=== PATIENT | female | born 1980 | race Caucasian/White ===

== ENCOUNTER 2017-08-29 07:49 | Outpatient (CLI) | payer OTHER | END 2017-08-29 07:50 | disposition home or self-care (01) | LOC: BICMAMMO 07:49 | PROVIDERS: ATTEND Family Medicine | DX: N63.10 Unspecified lump in the right breast, unspecified quadrant (principal) | CPT/HCPCS: 77066; G0279 ==

== ENCOUNTER 2022-12-11 15:34 | Emergency (ER) | payer OTHER, SELFPAY ==
[2022-12-11] MEDS ORDERED: Ketorolac Tromethamine 30 MG/ML VIAL ONE ×2 (16:01→16:03)
[2022-12-11 16:52] LABS: Bacteria/HPF None Seen HPF (None Seen); Bilirubin Negative (Negative); Blood, Urine 1+ (Negative); CAUTI Indications for Culture Pelvic or flank pain; Clarity Clear (Clear); Glucose, Urine (Dipstick) Normal (Negative); Ketone, Urine Negative (Negative); Leukocyte Negative Leu/uL (Negative); Nitrite Negative (Negative); Protein, Urine (Dipstick) 10 mg/dL (Neg-Trace); Specific Gravity, Urine 1.029 (1.002-1.036); Squamous Epithelial 0-3 HPF (0-3); Urobilinogen Normal mg/dL (Less than 2); WBC/HPF 0-3 HPF (0-3)
[2022-12-11 16:55] LABS: Urine Culture Reflex No No
== END 2022-12-11 17:24 | disposition home or self-care (01) ==
LOC: ERS 15:34
DX: M54.50 Low back pain, unspecified (principal); F17.210 Nicotine dependence, cigarettes, uncomplicated
CPT/HCPCS: 81001; 96372; 99283; J1885

== ENCOUNTER 2023-07-22 10:26 | Inpatient (IN) | payer OTHER, SELFPAY ==
[2023-07-22] MEDS ORDERED: ISOVUE-370 76% MDV (1 ML CHARGE) ONE (11:01)
[2023-07-22 12:12] LABS: #Eosinphils 0.2 thou/uL (0.0-0.7); #Monocytes 0.5 thou/uL (0.11-0.59); #Neutrophils 5.7 thou/uL (1.40-6.50); %Basophils 0.4 % (0.0-1.0); %Eosinophils 1.8 % (0.0-10.0); %Lymphocytes 22.5 % (21.0-51.0); %Monocytes 6.2 % (0.0-10.0); %Neutrophils 68.7 % (42.0-75.0); Hematocrit 37.9 % (36.0-47.0); Hemoglobin 12.6 g/dL (12.0-16.0); Mean Corpuscular HGB CONC 33.2 g/dL (32.0-36.0); Mean Corpuscular Hemoglobin 28.1 pg (27.0-31.0); Mean Corpuscular Volume 84.4 fl (78.0-98.0); Mean Platelet Volume 11.5 fL (7.4-10.4); Platelet Count 259 10x3/uL (130-400); RBC Distribution Width 13.2 % (11.5-14.5); Red Blood Cell (RBC) Count 4.49 mill/uL (4.20-5.40); White Blood Cell (WBC) Count 8.3 10x3/uL (4.8-10.8)
[2023-07-22] MEDS ORDERED: Aspirin Chewable 81 MG TAB ONE (12:12)
[2023-07-22 12:39] LABS: ALT (SGPT) 21 U/L (8-55); AST (SGOT) 21 U/L (5-34); Acetaminophen Less than 10 mcg/mL (10.0-30.0); Albumin 3.8 g/dL (3.5-5.0); Alcohol Less than 10.0 mg/dL (Less than 10); Alkaline Phosphatase 113 U/L (40-110); Anion Gap 10 mmol/L (10-20); BUN (Urea Nitrogen) 12 mg/dL (7.0-18.7); Bilirubin, Total 0.8 mg/dL (0.2-1.2); Calc. Creatinine Clearance 0 mL/min (70-130); Calcium 8.9 mg/dL (7.8-10.44); Carbon Dioxide 24 mmol/L (22-29); Chloride 107 mmol/L (98-107); Estimated GFR 75; Globulin 3.2 g/dL (2.4-3.5); Glucose 94 mg/dL (70-105); Magnesium 4.7 mg/dL (1.6-2.6); Potassium 4.1 mmol/L (3.5-5.1); Salicylate Less than 8.0 mg/dL (15.0-30.0); Sodium 137 mmol/L (136-145)
[2023-07-22 12:43] LABS: Troponin I Less than 0.010 ng/mL (< 0.028)
[2023-07-22 14:14] LABS: Bilirubin Negative (Negative); Blood, Urine Negative (Negative); Glucose, Urine (Dipstick) Negative (Negative); Ketone, Urine Negative (Negative); Leukocyte Moderate (Negative); Nitrite Negative (Negative); Protein, Urine (Dipstick) Negative (Neg-Trace); Specific Gravity, Urine 1.025 (1.005-1.030); Urobilinogen 0.2 mg/dL (Less than 2); pH, Urine 6.5 (5.0-9.0)
[2023-07-22 14:23] LABS: Amphetamine Detected (NotDetected); Barbiturates Screen Not Detected (NotDetected); Benzodiazepine Screen Not Detected (NotDetected); Cocaine Metabolite Screen Not Detected (NotDetected); Methadone Not Detected (NotDetected); Methamphetamine Detected (NotDetected); Opiate Screen Not Detected (NotDetected); Oxycodone Screen Not Detected (NotDetected); Phencyclidine (PCP) Not Detected (NotDetected); THC/Cannabinoid Screen Detected (NotDetected); Tricyclic Screen Not Detected (NotDetected)
[2023-07-22 14:25] LABS: CAUTI Indications for Culture Alt mental st,lethar; Squamous Epithelial 21-50 HPF (0-3)
[2023-07-22 14:26] LABS: Bacteria/HPF Rare-Few HPF (None Seen); Clarity Hazy (Clear)
[2023-07-22 14:27] LABS: Urine Culture Reflex No No
[2023-07-22] MEDS ORDERED: Bisacodyl 10 MG SUPP PR PRN (16:07)
[2023-07-22] MEDS ORDERED: Labetalol HCl 100 MG/20 ML VIAL SLOW IVP PRN (16:07)
[2023-07-22] MEDS ORDERED: Senokot S 8.6-50 MG TAB PO PRN (16:07)
[2023-07-22] MEDS ORDERED: Bisacodyl 5 MG TAB PO PRN (16:07)
[2023-07-22] MEDS ORDERED: hydrALAZINE 20 MG/ML VIAL SLOW IVP PRN (16:07)
[2023-07-22] MEDS ORDERED: Acetaminophen 325 MG TAB PO PRN (16:07)
[2023-07-22] MEDS ORDERED: Ondansetron PF 4 MG/2 ML Vial IVP PRN (16:07)
[2023-07-22 20:29] VITALS: BMI 38.5
[2023-07-22] MEDS: Atorvastatin Calcium 40 MG TAB PO SCH (21:54)
[2023-07-23 05:17] LABS: #Basophils 0.1 thou/uL (0.0-0.2); #Eosinphils 0.1 thou/uL (0.0-0.7); #Monocytes 0.4 thou/uL (0.11-0.59); #Neutrophils 2.8 thou/uL (1.40-6.50); %Basophils 0.9 % (0.0-1.0); %Eosinophils 2.5 % (0.0-10.0); %Lymphocytes 39.8 % (21.0-51.0); %Monocytes 7.3 % (0.0-10.0); %Neutrophils 49.3 % (42.0-75.0); Hematocrit 39.2 % (36.0-47.0); Hemoglobin 12.7 g/dL (12.0-16.0); Mean Corpuscular HGB CONC 32.4 g/dL (32.0-36.0); Mean Corpuscular Hemoglobin 27.8 pg (27.0-31.0); Mean Corpuscular Volume 85.8 fl (78.0-98.0); Mean Platelet Volume 11.3 fL (7.4-10.4); Platelet Count 214 10x3/uL (130-400); RBC Distribution Width 13.2 % (11.5-14.5); Red Blood Cell (RBC) Count 4.57 mill/uL (4.20-5.40); White Blood Cell (WBC) Count 5.6 10x3/uL (4.8-10.8)
[2023-07-23 05:36] LABS: Anion Gap 11 mmol/L (10-20); BUN (Urea Nitrogen) 12 mg/dL (7.0-18.7); Calc. Creatinine Clearance 158 mL/min (70-130); Calcium 8.5 mg/dL (7.8-10.44); Carbon Dioxide 23 mmol/L (22-29); Cardiac Risk 5.1 (Less than 4.5); Chloride 111 mmol/L (98-107); Cholesterol 147 mg/dl (< 200 Desired); Estimated GFR 89; Glucose 108 mg/dL (70-105); HDL Cholesterol 29 mg/dL (>60 Neg Risk); LDL Cholesterol, Calculated 96 mg/dL; Magnesium 2.1 mg/dL (1.6-2.6); Potassium 4.1 mmol/L (3.5-5.1); Sodium 141 mmol/L (136-145); Triglycerides 112 mg/dL (Less than 150)
[2023-07-23 05:37] LABS: ALT (SGPT) 15 U/L (8-55); AST (SGOT) 17 U/L (5-34); Albumin 3.2 g/dL (3.5-5.0); Alkaline Phosphatase 96 U/L (40-110); Bilirubin, Direct 0.1 mg/dL (0.1-0.3); Bilirubin, Total 0.4 mg/dL (0.2-1.2); Protein, Total 6.1 g/dL (6.0-8.3)
[2023-07-23 05:38] LABS: Hemoglobin A1c 5.6 % (4.0-6.0)
[2023-07-23 05:52] LABS: Thyroid Stimulating Hormone 2.2976 uIU/mL (0.35-4.94)
[2023-07-23 05:54] LABS: HIV (1/2) Antibody/Antigen Non-Reactive (NonReactive); HIV 1/2 INDEX 0.33 S/CO (<1.00)
[2023-07-23 05:59] LABS: Vitamin B12 519 pg/mL (211-911)
[2023-07-23] MEDS: Aspirin 81 mg Enteric Coated Tablet PO SCH (09:48)
[2023-07-23] MEDS: Enoxaparin 40 MG (0.4 mL) SYRINGE SC SCH (09:48)
[2023-07-23] MEDS: diphenhydrAMINE 25 MG CAP PO PRN (13:38)
[2023-07-23 19:25] LABS: Syphilis Antibody Nonreactive (Nonreactive); Syphilis Antibody Index 0.08 S/CO (<1.00 Non-Reactive)
[2023-07-24 11:51] VITALS: BP 140/84; TEMP 97.5
[2023-07-25] MEDS ORDERED: FLU VACC QS2023-24(6MOS UP)/PF 60 MCG/0.5 ML SYRINGE IM ONE (23:45)
== END 2023-07-24 13:39 | disposition home or self-care (01) | DRG 65 ==
LOC: ERS 10:26 → ERHOLD 15:39 → 2SE 20:00 → OBSVTOIN 07-23 09:56
PROVIDERS: ADMIT Family Medicine; ATTEND Internal Medicine
DX: I63.9 Cerebral infarction, unspecified (principal); G81.94 Hemiplegia, unspecified affecting left nondominant side; F14.10 Cocaine abuse, uncomplicated; F17.200 Nicotine dependence, unspecified, uncomplicated; I10 Essential (primary) hypertension
CPT/HCPCS: 36416; 70450; 70496; 70498; 70551; 71045; 80048; 80053; 80061; 80076; 80306; 80307; 81001; 82607; 83036; 83605; 83735; 84443; 84484; 85025; 86780; 86850; 86900; 86901; 87389; 93005; 93306; J1650